=== PATIENT | male | born 1960 | race Caucasian/White ===

== ENCOUNTER → 2017-12-23 | Outpatient (CLI) | payer OTHER ==
--- NOTE | 2017-12-23 09:48 | DIAGNOSTIC IMAGING REPORT ---
EXAMINATION: RENAL ULTRASOUND CLINICAL HISTORY: N28.1 Cyst of kidney, acquired COMPARISON STUDY: 12/19/2015 FINDINGS: The right kidney measures 10.7 cm. The left kidney measures 11.2 cm. There is no evidence of hydronephrosis. There is a stable 17 mm mid pole right renal cyst. Bilateral subcentimeter renal calculi are suspected. Neither ureteral jet was visualized. No bladder abnormalities were delineated. IMPRESSION : 1. Stable 17 mm right renal cyst 2. Suspected bilateral nephrolithiasis Electronically signed by: Christian Franco M.D. 12/23/2017 9:47 AM Dictated Date/Time: 12/23/2017 9:44 AM
== END | disposition home or self-care (01) ==
LOC: C.ULTR 08:40
PROVIDERS: ATTEND Urology
DX: N28.1 Cyst of kidney, acquired (principal)